=== PATIENT | female | born 1965 | race Hispanic/Latino ===

== ENCOUNTER 2022-09-24 14:07 | Emergency (ER) | payer BC, SELFPAY ==
[2022-09-24 14:23] VITALS: BP 176/87; PULSE 87; RESP 16; TEMP 37.2; O2SAT 97; BMI 40.4
[2022-09-24 17:58] LABS: Add Manual Diff / Slide Review NO; Basophils Absolute Auto 100 /uL (0-100); Basophils Percent Auto 0.6 % (0-2); Eosinophils Absolute Auto 200 /uL (0-450); Eosinophils Percent Auto 1.9 % (2-4); Hematocrit 40.8 % (36-46); Hemoglobin 13.5 g/dL (12.0-16.0); Lymphocytes Absolute Auto 3500 /uL (1100-4500); Lymphocytes Percent Auto 30.4 % (25-40); Mean Corpuscular HGB Conc 33.2 % (30-36); Mean Corpuscular Hemoglobin 27.7 PG (26-34); Mean Corpuscular Volume 83.6 fL (80-100); Monocytes Absolute Auto 700 /uL (0-900); Monocytes Percent Auto 6.5 % (3-14); Neutrophils Absolute Auto 7000 /uL (1500-7000); Neutrophils Percent Auto 60.6 % (50-75); Platelet Count 204 X10^3/uL (150-400); Red Blood Cell Count 4.88 X10^6/uL (4.0-5.2); White Blood Cell Count 11.5 X10^3/uL (4.5-11.0)
[2022-09-24 18:10] LABS: Alanine Aminotransferase 22 IU/L (<35); Albumin 4.3 g/dL (3.5-5.0); Albumin Globulin Ratio 1.5 (1.0-2.8); Alkaline Phosphatase 109 U/L (38-126); Aspartate Aminotransferase 20 IU/L (14-36); BUN Creatinine Ratio 15.7 (6-22); Bilirubin Total 0.6 mg/dL (0.2-1.3); Blood Urea Nitrogen 11 mg/dL (7-17); Carbon Dioxide 31 mmol/L (22-32); Chloride 101 mmol/L (98-107); Estimated Glomerular Filt Rate > 60 mL/min (>60); Globulin 2.9 g/dL (1.7-4.1); Glucose 80 mg/dL (70-100); HEMOLYSIS < 15 (0-50); Lipase 57 U/L (23-300); Potassium 3.6 mmol/L (3.4-5.1); Sodium 140 mmol/L (137-145); Total Protein 7.2 g/dL (6.3-8.2)
--- NOTE | 2022-09-24 18:15 | DI.CT.S_ITS ---
PROCEDURE: CT KIDNEY URETER BLADDER (KUB) INDICATIONS: flank pain TECHNIQUE: Axial sections were acquired from the lung bases to the pubic symphysis. Coronal and sagittal reformats were performed. For radiation dose reduction, the following was used: automated exposure control, adjustment of mA and/or kV according to patient size. COMPARISON: None. FINDINGS: Lung bases: No pleural effusion. 1.4 centimeter ovoid structure lower outer right breast (2/8). URINARY: No urinary stone or hydroureteronephrosis Bladder: Normal wall thickness. No stones. ABDOMEN: Liver: Unremarkable. Gallbladder: Absent Biliary ducts: Unremarkable. Pancreas: Unremarkable. Spleen: Unremarkable. Adrenal Glands: Unremarkable. Stomach and Bowel: No bowel obstruction or evidence of acute appendicitis Peritoneum: No abnormal intraperitoneal fluid. No free air. Abdominal Nodes: No enlarged retroperitoneal or mesenteric lymph nodes. Vessels: Aorta and inferior vena cava are normal in size. PELVIS: Pelvic Organs: The uterus is not visualized and is presumed surgically absent. Pelvic Nodes: Unremarkable. Bones: Multilevel degenerative change of the visualized spine. IMPRESSION: 1. No urinary stone or hydroureteronephrosis. 2. A 1.4 centimeter ovoid structure is present in the lower outer right breast. The breasts are not well evaluated by CT. Correlation with dedicated breast imaging is recommended. Dictated by: Michael Gomez M.D. on 09/24/2022 at 19:26 Approved by: Michael Gomez M.D. on 09/24/2022 at 19:34
--- NOTE | 2022-09-24 18:26 | ED_ITS ---
HPI - Back Pain/Injury General Chief Complaint: Abdominal Pain Stated Complaint: Lower back pain Time Seen by Provider: 09/24/22 18:13 Source: patient History of Present Illness HPI Narrative: 56F nonsmoker without chronic medical history presents with low back pain and was sent here by the walk in clinic for evaluation of her pain and suggestion that she would need an Xray. She is had relatively similar pain in the past and denies any specific or obvious traumatic injury or overuse. She states the pain is in her right lower back and seems to be worse when she moves and improves with rest. She denies any radiation of the pain. She denies any trouble co ntrolling bowel or bladder. She has no fever or chills and takes no blood thinners. She denies numbness, tingling or weakness of lower extremities. Related Data Previous Rx's Medication Instructions Recorded cyclobenzaprine 10 mg tablet 10 mg PO TID PRN muscle spasm #14 09/24/22 tabs hydrocodone 5 mg-acetaminophen 325 1 tab PO Q4-6H PRN pain #10 tabs 09/24/22 mg tablet lidocaine 5 % topical patch 1 patch topical DAILY #15 ea 09/24/22 (Lidoderm) Allergies Allergy/AdvReac Type Severity Reaction Status Date / Time aspirin Allergy Verified 09/24/22 14:22 Review of Systems Review of Systems Narrative: GENERAL: Denies chills, fatigue, malaise, fever, sweats. HEENT: Denies sinus pain, ear pain, sore throat, difficulty swallowing, dizziness. RESPIRATORY: Denies dyspnea, cough, wheezing, hemoptysis, sputum. CARDIOVASCULAR: Denies chest pain, palpitations, orthopnea, edema, GASTROINTESTINAL: Denies nausea, vomiting, abdominal pain, diarrhea, constipation, melena. : Denies dysuria, frequency, incontinence, hematuria, urinary retention. MUSCULOSKELETAL: See HPI SKIN: Denies rash, skin lesions, or other NEUROLOGIC: Denies weakness, headache, numbness, change in speech, confusion, seizures, incoordination. PSYCHIATRIC: No concerning psychosocial issues. 12 point review of systems is negative except for those stated above Patient History Social History Smoking Status: Never smoker Smoking Status: Never smoker alcohol intake frequency: holidays/special occasions only Substance Use Type: does not use Exam Narrative Exam Narrative: GENERAL: 56 year old patient appears stated age. Well-developed patient, in mild distress. HEAD: Atraumatic. Normocephalic. EYES: Pupils equal round and reactive. Extraocular motions intact. No scleral icterus. No injection or drainage. ENT: Nose without bleeding, purulent drainage. Throat without erythema, tonsil lar hypertrophy or exudate. Airway patent. NECK: Trachea midline. Non tender CARDIOVASCULAR: Regular rate and rhythm without murmurs, gallops, or rubs. RESPIRATORY: Clear to auscultation. Breath sounds equal bilaterally. No wheezes, rales, or rhonchi. GASTROINTESTINAL: Abdomen soft, non-tender, nondistended. EXTREMITIES: No edema or joint tenderness. BACK: bottle blowing machine tender but free of any obvious external abnormalities. Patient exam notes decreased range of motion and muscle spasm, but no CVA tenderness, or vertebral point tenderness. There are no symptoms of cauda equina such as saddle anesthesia, and decreased reflexes, decreased sensation or strength. NEURO: AOx3. SKIN: No rash or erythema of visible areas Initial Vital Signs Initial Vital Signs: Vital Signs Temperature 98.9 F 09/24/22 14:23 Pulse Rate 87 09/24/22 14:23 Respiratory Rate 16 09/24/22 14:23 Blood Pressure 176/87 H 09/24/22 14:23 Pulse Oximetry 97 09/24/22 14:23 Oxygen Delivery Method Room Air 09/24/22 14:23 Course Orders Ordered: Discontinued Medications Hydrocodone Bitart/Acetaminophen (Hydrocodone/Acet 5/325 Prepack) 1 bottle MISC SEEINSTR ONE Stop: 09/24/22 21:37 Last Admin: 09/24/22 21:51 Dose: 1 bottle Documented By: PAULO Cyclobenzaprine HCl (Cyclobenzaprine 10 Mg Prepack) 1 bottle MISC SEEINSTR ONE Stop: 09/24/22 21:37 Last Admin: 09/24/22 21:51 Dose: 1 bottle Documented By: PAULO Lidocaine (Lidocaine Patch 1 Each Adh..Patch) 1 each TOP NOW ONE Stop: 09/24/22 21:37 Last Admin: 09/24/22 21:52 Dose: 1 each Documented By: PAULO Ondansetron HCl (Ondansetron 4 Mg Odt) 4 mg PO NOW PRN PRN Reason: Nausea And Vomiting Ondansetron HCl (Ondansetron 4 Mg/2 Ml Inj) 4 mg IV NOW PRN PRN Reason: Nausea And Vomiting Reevaluation(s) Reevaluation #1: Improved after above-stated therapies Vital Signs Vital signs: Vital Signs - 8 hr 09/24/22 14:23 Temperature 98.9 F Pulse Rate 87 Respiratory Rate 16 Blood Pressure 176/87 H Pulse Oximetry 97 Oxygen Delivery Method Room Air MDM - Back Pain/Injury Lab Data 09/24/22 17:44 09/24/22 17:44 Labs: Lab Results 09/24/22 09/24/22 Range/Units 17:44 17:44 WBC 11.5 H (4.5-11.0) X10^3/uL RBC 4.88 (4.0-5.2) X10^6/uL Hgb 13.5 (12.0-16.0) g/dL Hct 40.8 (36-46) % MCV 83.6 (80-100) fL MCH 27.7 (26-34) PG MCHC 33.2 (30-36) % RDW 14.0 (11.6-14.8) % Plt Count 204 (150-400) X10^3/uL Neut % (Auto) 60.6 (50-75) % Lymph % (Auto) 30.4 (25-40) % [place] % (Auto) 6.5 (3-14) % Eos % (Auto) 1.9 L (2-4) % Baso % (Auto) 0.6 (0-2) % Neut # (Auto) 7000 (5492-0267) /uL Lymph # (Auto) 3500 (2031-1533) /uL [place] # (Auto) 700 (0-900) /uL Eos # (Auto) 200 (0-450) /uL Baso # (Auto) 100 (0-100) /uL Sodium 140 (137-145) mmol/L Potassium 3.6 (3.4-5.1) mmol/L Chloride 101 (98-107) mmol/L Carbon Dioxide 31 (22-32) mmol/L BUN 11 (7-17) mg/dL Creatinine 0.70 (0.52-1.04) mg/dL Estimated GFR > 60 (>60) mL/min BUN/Creatinine Ratio 15.7 (6-22) Glucose 80 (70-100) mg/dL Calcium 9.0 (8.4-10.2) mg/dL Total Bilirubin 0.6 (0.2-1.3) mg/dL AST 20 (14-36) IU/L ALT 22 (<35) IU/L Alkaline Phosphatase 109 (38-126) U/L Total Protein 7.2 (6.3-8.2) g/dL Albumin 4.3 (3.5-5.0) g/dL Globulin 2.9 (1.7-4.1) g/dL Albumin/Globulin Ratio 1.5 (1.0-2.8) Lipase 57 (23-300) U/L Point of Care Testing Test Results Negative Urine Dip Bedside Urine Glucose 250 mg/dl Bedside Urine Bilirubin - Negative Bedside Urine Ketone - Negative Urine Specific [place] 1.015 Bedside Urine Occult Blood - Negative Bedside Urine pH 6.0 Bedside Urine Protein - Negative Bedside Urine Urobilinogen - Negative Bedside Urine Nitrite - Negative Bedside Urine Leukocytes - Negative Esterase MDM Narrative Medical decision making narrative: [56] year old patient presents with right low back pain Multiple etiologies for patient's symptoms considered including, but not limited to: [Musculoskeletal, pyelonephritis, kidney stone, cauda equina, epidural abscess, epidural hematoma versus other] Prior Charts reviewed in our EMR Primary Historian: patient Labs reviewed and interpreted by myself: Serum labs without any significant abnormality requiring specific intervention, urine without signs of infection Imaging reviewed: CT KUB shows no kidney stone or obstructive process. There is an incidental finding of a structure in the right lateral breast that I discussed with patient and the importance of follow-up as an outpatient Patient's symptoms improved over duration of stay with above-stated therapies. Multiple etiologies of back pain considered including; Epidural abscess, cauda equina, mass occupying lesion, and other considered, however no red flag fin dings of a neurosurgical emergency are present Findings and discharge diagnosis discussed with patient/family followed by verbalization of understanding Return precautions discussed with patient/family whom verbalize understanding of diagnosis and plan Discharge Plan Departure Patient Disposition: Home Clinical Impression: Acute flank pain, Breast anomaly Instructions: DI for Thoracic Back Pain Activity Restrictions/Additional Instructions: *You have been diagnosed with [right thoracic back pain. As we discussed your history and physical exam as well as labs, urine and imaging are reassuring and there is no evidence of infection, kidney stone or other diagnosis that requires a specific or immediate intervention] *What to do: *Please continue to take your regular medications as directed. [ x] New medication prescriptions sent to your pharmacy: [ [facility] in [place]] [ ] New medication written as a paper prescription [ ] No new medications given *Please follow up with your primary care provider in 2-3 days, call for an appointment. Let them know you were seen in the Emergency Department and that we ask that you be seen in follow up. We will electronically transmit a record of today's note if your PCP is in our system *If you do not have a primary care provider please contact the [facility] Resource line at [phone]. They will ask some questions about your medical history and help get you set up with a doctor in the community. * as we discussed the CT noted an incidental finding of a 1.4 cm structure in the right lower outer portion of your right breast. CT scan is not the best method to image breaths and you can discuss this with your primary care provider moving forward, likely a mammogram is appropriate *Return to Emergency Department if you should have any new, worsening or concerning symptoms, such as [fever greater than 101 F, shaking chills, worsening pain, persistent vomiting or other bothersome symptoms] You have been prescribed a short course of narcotic medications. These are potentially dangerous and addictive medications that should be used carefully. While on these medications you cannot drive or operate heavy machinery. Additionally, you cannot sign legal documents or perform any duties such as this. Many people get constipated on narcotic medications so it would be advisable to discuss stool softeners with the pharmacist when you belt picker your prescription. Please understand that we cannot provide further refills of narcotics or controlled substances through the ED and your pain management will need to be through your Primary Care Provider Prescriptions: New cyclobenzaprine 10 mg tablet 10 mg PO TID PRN (Reason: muscle spasm) Qty: 14 0RF hydrocodone-acetaminophen 5-325 mg tablet 1 tab PO Q4-6H PRN (Reason: pain) Qty: 10 0RF lidocaine [Lidoderm] 5 % adhesive patch,medicated 1 patch TOP DAILY Qty: 15 0RF Rx Instructions: leave on most painful area for 12 hrs Stand Alone Forms: Patient Portal/API
[2022-09-24 21:45] VITALS: BP 139/83; PULSE 70
[2022-09-24 21:48] VITALS: BP 139/83; PULSE 75; RESP 16; O2SAT 99
[2022-09-24] MEDS: CYCLOBENZAPRINE 10 MG PREPACK 1 BOTTLE MISC (21:51)
[2022-09-24] MEDS: HYDROCODONE/ACET 5/325 PREPACK 1 BOTTLE MISC (21:51)
[2022-09-24] MEDS: LIDOCAINE PATCH 1 EACH ADH..PATCH TOP (21:52)
== END 2022-09-24 21:55 | disposition home or self-care (01) ==
PROVIDERS: Emergency Medicine; Emergency Provider Emergency Medicine
DX: R10.9 Unspecified abdominal pain (principal); Q83.9 Congenital malformation of breast, unspecified; M54.50 Low back pain, unspecified
CPT/HCPCS: 36415; 74176; 80053; 81003; 81025; 83690; 85025; 99283; 99284

== ENCOUNTER → 2023-01-23 14:23 | Outpatient (CLI) | payer BC, SELFPAY ==
[2023-01-23 15:28] LABS: Cholesterol 165 mg/dL (140-199); Glucose 94 mg/dL (70-100); HDL Cholesterol 62 mg/dL (40-60); LDL Cholesterol Calculated 87 mg/dL (<100); Triglycerides 81 mg/dL (35-150)
[2023-01-23 15:58] LABS: TSH w/ Reflex to FT4 0.59 uIU/mL (0.47-4.68)
== END ==
PROVIDERS: PCP Internal Medicine; Referring Provider Internal Medicine; Visit Provider Internal Medicine
DX: E78.2 Mixed hyperlipidemia (principal)
CPT/HCPCS: 36415; 80061; 82947; 84443

== ENCOUNTER → 2023-02-11 13:43 | Outpatient (CLI) | payer BC, SELFPAY ==
--- NOTE | 2023-02-11 13:45 | DI.US.S_ITS ---
ULTRASOUND OF RIGHT BREAST: 02/11/2023 CLINICAL: Patient returns today to evaluate a focal asymmetry in the right breast. Comparison is made to exams dated: 09/04/2020 mammogram - [facility], 02/11/2023 mammogram - [facility], 09/04/2020 ultrasound, 08/08/2019 mammogram, 08/08/2019 ultrasound, and 07/12/2019 mammogram - [facility]. Color flow ultrasound of the right breast was performed on the areas of interest. Dickey scale images of the real-time examination were reviewed. There is a heterogeneous, hypoechoic mass within the right breast at 8 o'clock, 4 cm from the nipple which corresponds with the stable mammographic finding. This measures 2.6 x 1.5 x 0.8 cm. There is internal vascularity. This corresponds as palpated and with the area of pain. IMPRESSION: INCOMPLETE: NEEDS ADDITIONAL IMAGING EVALUATION Heterogeneous hypoechoic mass within the right breast. No prior ultrasounds are available for comparison. The mammographic appearance of this lesion which has been stable when compared with the mammogram from September 04, 2020 and the mammogram dated July 12, 2019 suggests pseudoangiomatous stromal hyperplasia. However, given the history of recent increased pain in this region, consultation with surgery to discuss excisional biopsy is recommended. Electronically Signed By: Lola fernandez/:02/11/2023 15:10:00 letter sent: Followup Recommended Ultrasound BI-RADS: 0 Indeterminate
--- NOTE | 2023-02-11 13:45 | DI.MG.S_ITS ---
BILATERAL DIGITAL DIAGNOSTIC MAMMOGRAM 3D/2D: 02/11/2023 CLINICAL: Right breast mass. Comparison is made to exams dated: 09/04/2020 mammogram, 09/04/2020 ultrasound, 08/08/2019 mammogram, 08/08/2019 ultrasound, and 07/12/2019 mammogram - [facility]. There are scattered areas of fibroglandular density in both breasts (category b / 25%-50% glandular tissue). There is a stable oval mass in the right breast at 6 o'clock middle depth which contains both fibroglandular and fatty tissue. This likely corresponds as palpated. No other significant masses, calcifications, or other findings are seen in either breast. IMPRESSION: INCOMPLETE: NEEDS ADDITIONAL IMAGING EVALUATION The stable oval mass in the right breast is indeterminate. A targeted ultrasound of the right breast is recommended and will be performed immediately following this exam. Based on the Tyrer Cuzick model (a risk assessment model) the patient's lifetime risk is 9.2% and her 10 year risk is 3.5%. According to the ACR, ACS, and NCCN guidelines, an annual breast MRI exam along with mammogram is recommended if the patient's lifetime risk is 20% or greater. This exam was interpreted at Station ID: [id number]. NOTE: For mammograms, a report in lay terms will be sent to the patient. Approximately 15% of breast malignancies will not be visualized mammographically. In the management of a palpable breast mass, a negative mammogram must not discourage biopsy of a clinically suspicious lesion. Electronically Signed By: Lola fernandez/:02/11/2023 14:25:40 ACR BI-RADS Category 0: Incomplete [id number]
== END ==
PROVIDERS: PCP Internal Medicine; Referring Provider Internal Medicine; Visit Provider Internal Medicine
DX: R92.8 Other abnormal and inconclusive findings on diagnostic imaging of breast (principal); N63.13 Unspecified lump in the right breast, lower outer quadrant; Z80.3 Family history of malignant neoplasm of breast
CPT/HCPCS: 76642; 77066; G0279

== ENCOUNTER 2023-03-17 10:16 | Day surgery (SDC) | payer BC, SELFPAY ==
[2023-03-05 07:26] VITALS: BMI 39.4
[2023-03-17] VITALS (7 sets, daily range): BP systolic 128–184; BP diastolic 74–96; PULSE 85–111; RESP 13–18; TEMP 36.1–36.3; O2SAT 95–100; BMI 39.4
--- NOTE | 2023-03-17 | PATH_ITS ---
[facility] Accession Number: [id number] No. of containers..01 Tissue . 01 Material submitted: . breast - RIGHT BREAST MASS . 01 Clinical history: . RIGHT BREAST MASS (GREEN-ANTERIOR, BLUE -INFERIOR, ORANGE- LATERAL, YELLOW -MEDIAL, BLACK-POSTERIOR, RED-SUPERIOR . 01 Diagnosis: Right Breast, Mass, Lumpectomy: Fibrocystic and fibroadenomatous change. Focal usual duct epithelial hyperplasia, mild. Negative for significant atypia nad malignancy. MRV 03/19/2023 1543 Local . 01 Comment: Otr [employer] Truck [employer] slides of this case are also reviewed by Dr. Sana Frost, who concurs with the given interpretation. . 01 Electronically signed: . Marlene Dahl MD, Pathologist NPI- [id number] . 01 Gross description: . Received: In formalin labeled with the patient's name, , and right breast mass. Specimen: A right previously inked lumpectomy. Weight: 12 g. Measurement: 3.9 cm from medial to lateral, 3.3 cm from superior to inferior, and 2.0 cm from anterior to posterior. Skin ellipse: Absent. Wire: Absent. Margins: Inked by the surgeon as follows: Green-anterior, blue-inferior, orange-lateral, yellow-medial, black-posterior, red-superior. No sutures are identified, and the ink is reinforced at the bench. Sliced: From lateral to medial into nine slices. An ill-defined, pale carrera, firm lesion. Size: 2.9 x 1.9 x 0.9 cm. Slices involved: 1-9 (minimal lesion is grossly identified in slice 5). Biopsy site: Absent. Distance to margins: The lesion grossly approaches the green, red, yellow, and orange margins, and is 0.3 cm from the blue margin and 0.6 cm from the black margin. Other: The remaining cut surfaces are pale yellow, soft fibroadipose tissue and fibrous tissue occupying less than 10% of the cut surface with no additional lesions identified. . The specimen was removed on 03/17/23, time not provided, cold ischemic time cannot be calculated, total fixation time is approximately 33 hours. The specimen is submitted entirely as follows: A1-A2: Slice 1 perpendicular. A3: Slice 2. A4: Slice 3. A5: Slice 4. A6-A7: Composite slice 5. A8: Entire slice 6. A9: Entire slice 7. A10: Entire slice 8. A11-A12: Entire slice 9 perpendicular. ([id number]) /FRR 03/19/2023 0346 Local . 01 Pathologist provided ICD-10: N63.10 . 01 CPT . 685627 Specimen Comment: A courtesy copy of this report has been sent to [facility] Performed at: 01 [facility] [address] [place] [address], [place], [place] [id number] MD Lio Mcdaniels MD Phone: [phone]
[2023-03-17] MEDS: LACTATED RINGERS 1,000 ML 100 ML IV (10:46)
--- NOTE | 2023-03-17 11:22 | PM.PREOP ---
Pre-operative Note Interval Note History & Physical reviewed/Exam performed by Physician: Yes Changes to H&P: No H&P completed within 30 days and has changed as indicated here:: Questions answered. Consent discussed again with risks including but not limited to bleeding, infection, wound healing problems/seroma, and need for further procedures or margins if pathology report is different than expected. She understands all this and wishes to proceed today.
[2023-03-17] MEDS: CEFAZOLIN 2 GM/100 ML PREMIX 100 ML IV (11:42)
--- NOTE | 2023-03-17 12:06 | SUR.OPER ---
Supine on padded OR bed, head on pillow, arms secured on padded arm boards at <90 degrees abduction, legs uncrossed, safety belt at thigh, tape over blanket over lower legs.
[2023-03-17] MEDS: BUPIVACAINE 0.5% (PF) 30 ML, EPINEPHrine 0.15 MG INJ (12:29)
--- NOTE | 2023-03-17 13:02 | P.OP_ITS ---
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 Post-op diagnosis: same Procedure & Clinicians Procedure: Excisional breast biopsy Same procedure as scheduled: Yes Indications: Mass status post biopsy with pathology of PASH Surgeon: Margaux Sanchez Click Yes if Unassisted: Yes Anesthesia Type: General and Local Operative Notes Findings: There was a relatively well-circumscribed soft lesion that was identified and removed with approximately 2 mm margins Specimen(s): other (Breast mass with 6 sides marked with colors (superior inferior lateral medial anterior posterior)) Procedure in detail: Patient was taken to the operating room placed supine on the operating room table. Bilateral SCDs were placed preoperative antibiotics administered. Time- out was performed and general LMA anesthesia was induced. The area was prepped and draped in the usual sterile fashion the right breast had been marked in the preoperative care unit. The Irvin's lines of the breast were marked with a marking pen and local anesthetic was infused along the intended incision. 10. Blade scalpel was used to open the skin in a curvilinear fashion at the 8:00 location approximately 4 cm from the nipple. This incision was carried through the subcutaneous tissue into the breast tissue and a finger was inserted to palpate the lesion. The lesion was easily palpable and the was grabbed with an Allis clamp. Electrocautery was used to come around this lesion. The specimen then was removed maintaining the orientation and marked using the marking paint set. Was then sent to pathology. Was not sent to Radiology because the lesion was not well visible on the mammogram rather was identified and biopsied with ultrasound. The cavity was inspected and irrigated using electrocautery was made hemostatic. The cavity was closed with a few interrupted 3-0 Vicryl sutures and the skin was closed with a running 4-0 Monocryl and dressed with sterile Steri-Strips. The remainder of the local anesthesia was infused around the area. She tolerated the procedure well and went in good condition to the postoperative care unit EBL was minimal and there were no complications.
[2023-03-17] MEDS: OXYCODONE/ACETAMINOPHEN 5/325 TABLET 1 TAB PO (13:43)
[2023-03-17] MEDS: ONDANSETRON 4 MG/2 ML INJ IV (13:57)
== END 2023-03-17 13:55 | disposition home or self-care (01) ==
PROVIDERS: PCP Internal Medicine; Referring Provider Surgery; Visit Provider Surgery
PROC: (CPT 19301; principal; 2023-03-17 11:00)
DX: N64.89 Other specified disorders of breast (principal); N62 Hypertrophy of breast; E66.9 Obesity, unspecified; Z68.41 Body mass index [BMI] 40.0-44.9, adult
CPT/HCPCS: 19120; J0171; J0690; J1100; J2405; J2704; J3010